=== PATIENT | male | born 1980 | race Caucasian/White ===

== ENCOUNTER 2017-06-15 21:03 | Emergency (ER) | payer OTHER | END 2017-06-16 00:26 | disposition home or self-care (01) | LOC: M ED 06-16 00:26 | DX: I83.813 Varicose veins of bilateral lower extremities with pain (principal); I80.02 Phlebitis and thrombophlebitis of superficial vessels of left lower extremity; J45.909 Unspecified asthma, uncomplicated; K21.9 Gastro-esophageal reflux disease without esophagitis; Z79.899 Other long term (current) drug therapy; Z88.8 Allergy status to other drugs, medicaments and biological substances | CPT/HCPCS: 93971 ==

== ENCOUNTER 2017-12-02 14:02 | Emergency (ER) | payer OTHER ==
[2017-12-02] MEDS: NAPROXEN 250 MG TAB PO (14:13)
== END 2017-12-02 14:38 | disposition home or self-care (01) ==
LOC: M ED 14:02
DX: S92.532A Displaced fracture of distal phalanx of left lesser toe(s), initial encounter for closed fracture (principal); W22.8XXA Striking against or struck by other objects, initial encounter; Y92.89 Other specified places as the place of occurrence of the external cause
CPT/HCPCS: 73140

== ENCOUNTER 2018-03-22 09:06 | Day surgery (SDC) | payer OTHER ==
[~2018-03-22] VITALS: Ht 185.4 cm; Wt 68.0 kg
[~2018-03-22 09:06] MED LIST: LIDOCAINE 1% MDV 20ML VIAL SQ PRN; LIDOCAINE 2% INJ 100 MG/5 ML SDV (FOR ANES.) As Ordered ONE; LR 1,000 ML IV ONE; MIDAZOLAM INJ 2 MG/2 ML VIAL (J2250) As Ordered ONE; NAPR-50 PO; OMEP40CA2 PO; ONDANSETRON 4MG/2ML VIAL (J2405) As Ordered ONE; PROAAER10 INH; PROPOFOL 500 MG/50 ML VIAL As Ordered ONE; RANI15TA PO; SYMB16INH INH; VENTAER INH; VITA100067 PO; dexameTHASONE 4 MG/ML 1ML VIAL (J1100) As Ordered ONE; fentaNYL 100 MCG/2 ML INJECTION (J3010) As Ordered ONE
[2018-03-22] MEDS ORDERED: LIDOCAINE W/EPINEPHRINE 1% 20ML VIAL As Ordered ONE (14:29)
[2018-03-22] MEDS ORDERED: BUPIVACAINE HCL 0.5% 30 ML VIAL As Ordered ONE (14:44)
[2018-03-22] MEDS ORDERED: LIDOCAINE 1% SDV INJ 30 ML VIAL As Ordered ONE (14:44)
[2018-03-22] MEDS ORDERED: PERCOCET 5MG/325MG TAB PO PRN (15:30)
[2018-03-22] MEDS ORDERED: ONDANSETRON 4MG/2ML VIAL (J2405) IV PRN (15:30)
[2018-03-22] MEDS ORDERED: LR 1,000 ML IV SCH (15:30)
[2018-03-22] MEDS ORDERED: fentaNYL 100 MCG/2 ML INJECTION (J3010) IV PRN (15:30)
[2018-03-22 15:45] VITALS: BP 130/80
--- NOTE | 2018-04-16 11:14 | RO ---
DATE OF PROCEDURE: 03/22/2018 ATTENDING SURGEON: Dr. Aditya Valencia LOG FEEDER: None. PREOPERATIVE DIAGNOSIS: Painful left calf varicose veins. POSTOPERATIVE DIAGNOSES: Painful left calf varicose veins. PROCEDURE: Varicose vein stab phlebectomy of the left lower extremity with greater than 20 stab phlebectomies. INDICATIONS: The patient is a 37-year-old male with varicose veins in his left lower extremity which are painful, especially when he stands for prolonged periods of time. The patient has tried conservative therapy with compression stockings with minimal relief and will now undergo phlebectomy of the painful varicose veins in the left lower extremity. The procedure was described and explained to the patient in detail, including drawing of pictures demonstrating the procedure and pertinent anatomy. Risks, benefits and alternative options were discussed with the patient. Alternative treatment options included were not limited to no intervention. Benefits included but were not limited to removal of the painful varicose veins with relief of symptoms. Risks included but were not limited to infection, bleeding, renal failure requiring hemodialysis, possible need for further open surgical intervention, hematoma formation, scarring, nerve injury, adverse or allergic reaction to the prepping and draping materials, adverse or allergic reaction to the IV and local anesthetic, possible need for transfusion of blood products, cerebrovascular accident, myocardial infarction, pulmonary embolus, deep venous thrombosis, poor satisfaction, poor outcome, poor results, loss of limb and loss of life. Risks of not performing the procedure included but were not limited to continued painful varicose veins in the left lower extremity with possible ulceration and bleeding. The patient's questions were answered. The patient voices understanding and acceptance of these risks, benefits and alternative treatment options and consents to proceed with left lower extremity stab phlebectomies of painful varicose veins. There were no promises or guarantees made to the patient regarding the procedure and/or results and/or outcome. ANESTHESIA: Local MAC. ESTIMATED BLOOD LOSS: 20 mL IV FLUIDS: 300 mL SPECIMEN: Left lower extremity varicose veins. COMPLICATIONS: None. DRAINS: None. IMPLANTS: None. PROCEDURE: The patient was taken the operating room and placed supine on the operating room table and then prepped and draped in a standard surgical fashion. A time-out was then conducted by myself and the team members in the room confirming the correct patient, procedure and laterality. The varicose veins had been marked in the preoperative holding area in the standing position prior to being taken to the operating room. The skin overlying the varicose veins were then anesthetized 1% lidocaine mixed with 0.5% Marcaine and stab evulsion of the varicose veins previously marked in the left calf were performed with greater than 20 stab phlebectomies being performed. The stab incisions were closed with kathia. Once hemostasis was obtained, dressings were then applied. The patient tolerated the procedure well. All instrument, sponge, and needle counts were correct at the end the case. There were no complications. Dr. Valencia was present for and directed the entire case. The patient was transferred to the recovery area where the procedure and results were described and explained to the patient in detail with all of his questions being answered.
== END 2018-03-22 16:24 | disposition home or self-care (01) ==
LOC: M SDC 09:06
PROVIDERS: ATTEND Surgery Vascular Surgery
DX: I83.812 Varicose veins of left lower extremity with pain (principal)
CPT/HCPCS: 37766; 88300; C1769; C1894; J1100; J2250; J2405; J3010

== ENCOUNTER → 2019-01-15 | Outpatient (REF) | payer OTHER, MEDICAID ==
[~2019-01-15] MED LIST changes: -LIDOCAINE 1% MDV 20ML VIAL SQ PRN; -LIDOCAINE 2% INJ 100 MG/5 ML SDV (FOR ANES.) As Ordered ONE; -LR 1,000 ML IV ONE; -MIDAZOLAM INJ 2 MG/2 ML VIAL (J2250) As Ordered ONE; -NAPR-50 PO; +NAPR-837 PO; -OMEP40CA2 PO; +OMEP40CA97 PO; -ONDANSETRON 4MG/2ML VIAL (J2405) As Ordered ONE; -PROPOFOL 500 MG/50 ML VIAL As Ordered ONE; -dexameTHASONE 4 MG/ML 1ML VIAL (J1100) As Ordered ONE; -fentaNYL 100 MCG/2 ML INJECTION (J3010) As Ordered ONE
[2019-01-15 18:12] LABS: BASO % 0.8 % (0.0-1.0); EOS # 0.1 10^3/uL (0.0-0.5); HEMATOCRIT 43.9 % (42.0-52.0); HEMOGLOBIN 14.7 g/dl (13.5-17.5); LYMPH # 1.6 10^3/uL (1.5-5.0); LYMPH % 32.3 % (24.0-44.0); MEAN CORPUSCULAR HEMOGLOBIN 28.8 pg (27.0-33.0); MEAN CORPUSCULAR HGB CONC 33.5 g/dl (32.0-36.5); MEAN CORPUSCULAR VOLUME 85.9 fl (80.0-96.0); MONO # 0.6 10^3/uL (0.0-0.8); MONO % 11.4 % (0.0-5.0); NEUTROPHILS # 2.7 10^3/uL (1.5-8.5); NEUTROPHILS % 54.5 % (36.0-66.0); PLATELET COUNT, AUTOMATED 165 10^3/uL (150-450); RED BLOOD COUNT 5.11 10^6/uL (4.30-6.10); WHITE BLOOD COUNT 4.9 10^3/uL (4.0-10.0)
[2019-01-15 18:27] LABS: HEMOGLOBIN A1c 5.7 %
[2019-01-15 18:37] LABS: ALBUMIN 4.1 GM/DL (3.2-5.2); ALT/SGPT 26 U/L (12-78); BILIRUBIN,TOTAL 1.2 MG/DL (0.2-1.0); BLOOD UREA NITROGEN 11 MG/DL (7-18); CALCIUM LEVEL 9.2 MG/DL (8.5-10.1); CARBON DIOXIDE LEVEL 30 MEQ/L (21-32); CHLORIDE LEVEL 107 MEQ/L (98-107); CHOLESTEROL LEVEL 161 MG/DL (<200); CHOLESTEROL RISK RATIO 2.775 (<5); CREATININE FOR GFR 0.95 MG/DL (0.70-1.30); FREE T4 1.04 NG/DL (0.76-1.46); GLOMERULAR FILTRATION RATE > 60.0 (>60); GLUCOSE, FASTING 81 MG/DL (70-100); HDL CHOLESTEROL 58 MG/DL (>40); LDL CHOLESTEROL 86 MG/DL (<100); NON-HDL-C 103 MG/DL; POTASSIUM SERUM 4.4 MEQ/L (3.5-5.1); SODIUM LEVEL 140 MEQ/L (136-145); TOTAL PROTEIN 7.3 GM/DL (6.4-8.2); TRIGLYCERIDES LEVEL 85 MG/DL (<150)
[2019-01-15 18:39] LABS: TOTAL 25(OH) VITAMIN D 32.8 NG/ML (30.0-100.0)
[2019-01-19 00:07] LABS: Lyme Disease IgG/IgM Antibodie <0.91 ISR (0.00-0.90); Lyme Disease IgM Ab Quantitati <0.80 index (0.00-0.79)
== END ==
LOC: M LAB REF 17:28
PROVIDERS: ATTEND Family Medicine
DX: Z13.228 Encounter for screening for other metabolic disorders (principal)

== ENCOUNTER 2019-08-03 19:43 | Emergency (ER) | payer MEDICAID, OTHER ==
[~2019-08-03] VITALS: Ht 188 cm; Wt 70.9 kg
[2019-08-03] MEDS ORDERED: ECOT81TA5 PO (21:17)
[2019-08-03 21:21] LABS: BASO # 0.1 10^3/uL (0.0-0.2); EOS # 0.1 10^3/uL (0.0-0.5); EOS % 1.4 % (0.0-3.0); HEMATOCRIT 45.2 % (42.0-52.0); HEMOGLOBIN 14.9 g/dl (13.5-17.5); LYMPH # 2.3 10^3/uL (1.5-5.0); LYMPH % 46.4 % (24.0-44.0); MEAN CORPUSCULAR HEMOGLOBIN 28.3 pg (27.0-33.0); MEAN CORPUSCULAR VOLUME 85.8 fl (80.0-96.0); MONO # 0.6 10^3/uL (0.0-0.8); MONO % 11.9 % (0.0-5.0); NEUTROPHILS # 1.9 10^3/uL (1.5-8.5); NEUTROPHILS % 39.1 % (36.0-66.0); PLATELET COUNT, AUTOMATED 213 10^3/uL (150-450); RED BLOOD COUNT 5.27 10^6/uL (4.30-6.10); WHITE BLOOD COUNT 4.9 10^3/uL (4.0-10.0)
[2019-08-03 21:40] LABS: BLOOD UREA NITROGEN 12 MG/DL (7-18); CALCIUM LEVEL 9.1 MG/DL (8.5-10.1); CARBON DIOXIDE LEVEL 27 MEQ/L (21-32); CHLORIDE LEVEL 109 MEQ/L (98-107); CREATININE FOR GFR 0.78 MG/DL (0.70-1.30); GLOMERULAR FILTRATION RATE > 60.0 (>60); GLUCOSE, FASTING 85 MG/DL (70-100); POTASSIUM SERUM 4.1 MEQ/L (3.5-5.1); SODIUM LEVEL 141 MEQ/L (136-145)
[2019-08-03] MEDS ORDERED: KETOROLAC 30 MG/ML 1ML VIAL IV ONE (21:45)
[2019-08-03 23:00] VITALS: BP 115/71
--- NOTE | 2019-08-04 15:47 | REP ---
Single view chest: 08/03/2019. Indication: Chest pain. Comparison: 03/07/2014. Findings: The lungs are clear. There is no pleural effusion or pneumothorax. The cardiac silhouette is not enlarged. Impression: Clear lungs. Electronically Signed by Juan Schofield DO 08/04/2019 03:38 P
--- NOTE | 2019-08-04 16:08 | ECGEPIP ---
[facility] - ED Test Date: 2019-08-03 Pat Name: JANIE ROLDAN Department: Room: - Gender: Male [employer]er [employer]ane Operator: yehuda : 1980 Requested By: SUDHIR NAVARRO Order Number: [id number] Reading MD: Pinky Renteria Measurements Intervals [place] Rate: 53 P: 72 [place]: 151 QRS: 83 QRSD: 100 T: 78 QT: 424 QTc: 399 Interpretive Statements SINUS BRADYCARDIA WITH OCCASIONAL VENTRICULAR PREMATURE COMPLEXES EARLY REPOLARIZATION, CLINICAL CORRELATION NO PRIOR Electronically Signed on 08-04-2019 16:08:14 EDT by Pinky Renteria
== END 2019-08-03 23:20 | disposition home or self-care (01) ==
LOC: M ED 19:43
DX: R07.1 Chest pain on breathing (principal); R00.1 Bradycardia, unspecified; J45.909 Unspecified asthma, uncomplicated; K21.9 Gastro-esophageal reflux disease without esophagitis; E80.4 Gilbert syndrome; M94.0 Chondrocostal junction syndrome [Tietze]; Z87.891 Personal history of nicotine dependence; Z88.8 Allergy status to other drugs, medicaments and biological substances
CPT/HCPCS: 36415; 71045; 80048; 85025; 93005; 93041; 94760; 96374; 99285; J1885

== ENCOUNTER 2019-08-27 22:35 | Emergency (ER) | payer OTHER ==
[~2019-08-27] VITALS: Ht 185.4 cm; Wt 75.0 kg
[~2019-08-27 22:35] MED LIST changes: +ECOT81TA5 PO
[2019-08-27] MEDS ORDERED: DOCU100C16 (22:49)
[2019-08-27] MEDS ORDERED: ESOM20CA25 (22:49)
[2019-08-27 23:01] VITALS: BP 127/62
[2019-08-27 23:09] LABS: HEMATOCRIT 46.9 % (42.0-52.0); MEAN CORPUSCULAR HEMOGLOBIN 28.8 pg (27.0-33.0); PLATELET COUNT, AUTOMATED 214 10^3/uL (150-450); RED BLOOD COUNT 5.21 10^6/uL (4.30-6.10); WHITE BLOOD COUNT 5.9 10^3/uL (4.0-10.0)
[2019-08-27 23:34] LABS: AMPHETAMINES LEVEL URINE NEGATIVE (NEGATIVE); BARBITURATES URINE NEGATIVE (NEGATIVE); BENZODIAZEPINES URINE NEGATIVE (NEGATIVE); CANNABINOIDS URINE NEGATIVE (NEGATIVE); COCAINE METABOLITE URINE NEGATIVE (NEGATIVE); METHADONE URINE NEGATIVE (NEGATIVE); OPIATES URINE NEGATIVE (NEGATIVE); PHENCYCLIDINE URINE NEGATIVE (NEGATIVE)
[2019-08-27 23:43] LABS: ACETAMINOPHEN LEVEL < 2.0 UG/ML (10.0-30.0); ALBUMIN 4.4 GM/DL (3.2-5.2); ALT/SGPT 23 U/L (12-78); BILIRUBIN,DIRECT 0.3 MG/DL (0.0-0.2); BILIRUBIN,TOTAL 1.5 MG/DL (0.2-1.0); BLOOD UREA NITROGEN 12 MG/DL (7-18); CALCIUM LEVEL 9.3 MG/DL (8.5-10.1); CARBON DIOXIDE LEVEL 27 MEQ/L (21-32); CHLORIDE LEVEL 108 MEQ/L (98-107); CREATININE FOR GFR 0.88 MG/DL (0.70-1.30); ETHYL ALCOHOL (ETHANOL) 0.003 % (0.000-0.010); GLOMERULAR FILTRATION RATE > 60.0 (>60); GLUCOSE, FASTING 99 MG/DL (70-100); POTASSIUM SERUM 4.1 MEQ/L (3.5-5.1); SALICYLATE LEVEL < 1.7 MG/DL (5.0-30.0); SODIUM LEVEL 142 MEQ/L (136-145); TOTAL PROTEIN 7.9 GM/DL (6.4-8.2)
== END 2019-08-28 01:14 | disposition home or self-care (01) ==
LOC: M ED 22:35
DX: F43.20 Adjustment disorder, unspecified (principal); K21.9 Gastro-esophageal reflux disease without esophagitis; K59.00 Constipation, unspecified; Z79.899 Other long term (current) drug therapy; Z88.8 Allergy status to other drugs, medicaments and biological substances
CPT/HCPCS: 36415; 80048; 80076; 80307; 84443; 85027; 99284; G0480

== ENCOUNTER 2020-10-25 20:42 | Emergency (ER) | payer OTHER ==
[~2020-10-25] VITALS: Ht 185.4 cm; Wt 79.0 kg
[~2020-10-25 20:42] MED LIST changes: +DOCU100C16; +ESOM20CA25; +OMEP40CA4 PO; -OMEP40CA97 PO
[2020-10-25 20:43] VITALS: BP 124/71
[2020-10-25] MEDS ORDERED: KETOROLAC 60MG 2ML VIAL IM ONE (22:00)
[2020-10-25] MEDS ORDERED: CYCLOBENZAPRINE 10MG TABLET PO ONE (23:00)
[2020-10-25] MEDS ORDERED: CYCL5TAB PO (23:01)
[2020-10-25] MEDS ORDERED: NAPR-837 PO (23:01)
[2020-10-25] MEDS ORDERED: LIDO5DIS41 TD (23:02)
== END 2020-10-25 23:13 | disposition home or self-care (01) ==
LOC: M ED 20:42
DX: S39.012A Strain of muscle, fascia and tendon of lower back, initial encounter (principal); X50.9XXA Other and unspecified overexertion or strenuous movements or postures, initial encounter; Y92.9 Unspecified place or not applicable; Y93.9 Activity, unspecified; Y99.9 Unspecified external cause status
CPT/HCPCS: 96372; 99282; J1885

== ENCOUNTER 2022-09-01 11:48 | Day surgery (SDC) | payer OTHER ==
[~2022-09-01] VITALS: Ht 185.4 cm; Wt 80.1 kg
[~2022-09-01 11:48] MED LIST changes: +CYCL5TAB PO; +LIDO5DIS41 TD; +NS 1,000 ML IV ONE
[2022-09-01] MEDS ORDERED: LIDOCAINE 2% 100MG/5ML SDV (FOR ANES.) As Ordered ONE (13:36)
[2022-09-01] MEDS ORDERED: propofoL 200 MG/20 ML VIAL As Ordered ONE (13:36)
[2022-09-01] MEDS ORDERED: fentaNYL 100 MCG/2 ML INJECTION As Ordered ONE (15:28)
[2022-09-01 15:43] VITALS: TEMP 97
[2022-09-01 16:05] VITALS: BP 124/72; O2SAT 98
== END 2022-09-01 16:14 | disposition home or self-care (01) ==
LOC: M OPP 11:48
PROVIDERS: ATTEND Internal Medicine Gastroenterology
DX: R12 Heartburn (principal); Z79.52 Long term (current) use of systemic steroids; Z79.82 Long term (current) use of aspirin; Z79.899 Other long term (current) drug therapy; Z88.8 Allergy status to other drugs, medicaments and biological substances
CPT/HCPCS: 43235; J3010